=== PATIENT | female | born 1980 | race Caucasian/White ===

== ENCOUNTER → 2017-08-25 | Outpatient (CLI) | payer BC ==
[~2017-08-25] MED LIST: EPP3/2 IM; FURO-85 PO; LEVAAER2; LEVO1TAB PO; LISI-788 PO; METF750T PO; METO50TA7 PO; MOME220A INH
--- NOTE | 2017-08-25 10:14 | DIAGNOSTIC IMAGING REPORT ---
CT OF THE ABDOMEN AND PELVIS WITHOUT CONTRAST CLINICAL HISTORY: Bilateral flank pain. Nephrolithiasis. COMPARISON STUDY: CT of the abdomen and pelvis October 10, 2014 and KUB performed earlier today. TECHNIQUE: Axial images of the abdomen and pelvis were obtained without IV contrast. Images were reviewed in the axial, sagittal, and coronal planes. A dose lowering technique was utilized adhering to the principles of ALARA. FINDINGS: No ureteral or bladder calculi are present. Note is made of a punctate left lower pole renal calculus. This measures 2 mm. The possible right renal calculus shown on prior KUB was artifactual. Pelvic calcifications reflect phleboliths. There are is no hydronephrosis or hydroureter. Evaluation of the remainder of the abdomen and pelvis is suboptimal on this unenhanced exam. Fatty infiltration of the liver is noted. Unenhanced images of the spleen, adrenal glands and pancreas are normal. There is no evidence for a bowel obstruction. The appendix is normal. There is no ascites or lymphadenopathy. Ovaries are not enlarged. Postoperative findings within the spine are noted. IMPRESSION: 1. Punctate 2 mm left renal calculus. No ureteral calculi or hydronephrosis. The possible right renal calculus shown on prior KUB was artifactual. 2. Fatty liver. 3. Normal appendix. No bowel obstruction. Electronically signed by: Farzad Hooks M.D. 08/25/2017 10:12 AM Dictated Date/Time: 08/25/2017 10:07 AM
== END | disposition home or self-care (01) ==
LOC: C.CTS 09:53
PROVIDERS: ATTEND Nurse Practitioner Family
DX: N20.0 Calculus of kidney (principal); K76.0 Fatty (change of) liver, not elsewhere classified

== ENCOUNTER → 2017-08-25 | Outpatient (CLI) | payer BC ==
--- NOTE | 2017-08-25 08:31 | DIAGNOSTIC IMAGING REPORT ---
KUB CLINICAL HISTORY: Nephrolithiasis. COMPARISON STUDY: KUB February 11, 2016. FINDINGS: Postoperative findings within the spine are incidentally noted. The bowel gas pattern is normal. There is a possible 7 mm right renal calculus. No ureteral calculi are identified. Pelvic calcifications likely reflect phleboliths. IMPRESSION: 1. Possible 7 mm right renal calculus. 2. Pelvic calcifications which likely reflect phleboliths. Electronically signed by: Farzad Hooks M.D. 08/25/2017 8:29 AM Dictated Date/Time: 08/25/2017 8:26 AM
== END | disposition home or self-care (01) ==
LOC: C.RAD 08:03
PROVIDERS: ATTEND Nurse Practitioner Family
DX: N20.0 Calculus of kidney (principal); R93.5 Abnormal findings on diagnostic imaging of other abdominal regions, including retroperitoneum

== ENCOUNTER → 2017-10-19 | Outpatient (CLI) | payer BC ==
[~2017-10-19] MED LIST changes: +LEVA1.255 INH; +LEVA45AE INH; +LEVO75TA5 PO; +METO50TA16 PO; +MULT-506 PO
--- NOTE | 2017-10-19 08:55 | DIAGNOSTIC IMAGING REPORT ---
THYROID ULTRASOUND CLINICAL HISTORY: NECK PAIN COMPARISON STUDY: No previous studies for comparison. FINDINGS: The right lobe of thyroid measures 4.2 x 1.7 x 1.5 cm. Left lobe of thyroid measures 4.3 x 1.6 x 1.7 cm. No thyroid masses are visualized. Incidentally noted is a 13 x 10 x 7 mm left submandibular lymph node. IMPRESSION: 1. No pathologic thyroid masses identified 2. Incidentally noted 13 x 10 x 7 mm left submandibular lymph node Electronically signed by: Garret Travis M.D. 10/19/2017 8:54 AM Dictated Date/Time: 10/19/2017 8:52 AM
== END | disposition home or self-care (01) ==
LOC: C.ULTR 08:13
PROVIDERS: ATTEND Family Medicine
DX: M54.2 Cervicalgia (principal)

== ENCOUNTER → 2017-11-06 | Day surgery (SDC) | payer BC ==
[2017-10-22 10:30] VITALS: BMI 44.0
[~2017-11-06] VITALS: Ht 167.6 cm; Wt 127.3 kg
[~2017-11-06] MED LIST changes: +ACET1TAB84 PO; +ALUM-30 PO; +CHECK SCOPOLAMINE PATCH PLACEMENT SCH; +FLVHFA110 INH; -FURO-85 PO; -LEVAAER2; -LEVO1TAB PO; +LIDOCAINE HCL 2% 2 ML VIAL (20MG/ML) ONE; -METF750T PO; -METO50TA7 PO; -MOME220A INH; +NORE0.3527 PO; +OMEP40CA41 PO; +ONDANSETRON INJ 2 MG/ML 2 ML VIAL ONE; +PROPOFOL IV EMULSION 10 MG/ML 20 ML VIAL IV ONE; +SCOPOLAMINE 1.5 MG TDSY TD ONE; +SCOPOLAMINE 1.5 MG TDSY TD SCH; +SODIUM CHLORIDE 0.9% 500ML 500 ML IV ONE
[2017-11-06 12:09] VITALS: Ht 167.6 cm; Wt 127.3 kg
--- NOTE | 2017-11-06 12:44 | Endo History and Physical ---
History & Physical Date of Service: Nov 06, 2017. Chief Complaint: REFLUX FEELS LIKE FOOD STICKS Referring Physician: DR KEARNEY History of Present Illness dysphagia Past Medical History Arthritis, Fractures, Asthma, Gastrointestinal Disorder, Reflux, Blood Dyscrasias, Gynecological Problems, Seizure Disorder, High Cholesterol, Syncopal Episodes, Hypertension, Thyroid Disease, Chronic Steroid Use, Kidney Disease, Liver Disease Past Surgical History Hx Cardiac Surgery: Yes (LOOP RECORDER IMPLANTED) Hx Internal Defibrillator: No Hx Pacemaker: No Hx Abdominal Surgery: No Hx of Implantable Prosthesis: No Hx Post-Op Nausea and Vomiting: Yes (REQUEST MEDS TO PREVENT) Hx Cancer Surgery: No Hx Thoracic Surgery: No Hx Orthopedic: Yes (RT/LEFT CTR, LEFT SHOULDER SX X2, LUMBAR FUSION) Hx Urinary Tract Surgery: No Family History Polyp Social History Smoking Status: Never Smoker Hx Substance Use: No Hx Alcohol Use: No Allergies Coded Allergies: NO KNOWN DRUG ALLERGIES (Unverified Allergy, Mild, none, 10/22/17) Adhesives (Verified Allergy, Unknown, REDNESS, 10/22/17) Chocolate (Verified Allergy, Unknown, WARM LIPS, 10/22/17) Garlic (Verified Allergy, Unknown, LIPS SWELL, 10/22/17) Milk (Verified Allergy, Unknown, LIPS SWELL, 10/22/17) Milk Protein Extract (Verified Allergy, Unknown, MILK = LIPS SWELL, ) Pineapple (Verified Allergy, Unknown, LIPS SWELL, 10/22/17) Pork (Verified Allergy, Unknown, LIPS SWELL, 10/22/17) Pork-derived Products (Verified Allergy, Unknown, PORK = LIPS SWELL, 10/22) Shellfish (Verified Allergy, Unknown, sometimes lip swells, fine with iodinated contrast, 10/22/17) Shellfish Allergy (Verified Allergy, Unknown, SHELLFISH-sometimes lip swells, fine with iodinated contrast, 10/22/17) Tomato (Verified Allergy, Unknown, LIPS SWELL, 10/22/17) Uncoded Allergies: ENVIRONMENTAL ALLERGIES (Allergy, Unknown, POLLEN AND DUST, MOLD, TOBACCO, 10/22/17) Current Medications Reported Home Medications Medications Dose Route/Sig Max Daily Dose Days Date Category Levalbuterol Tartrate Hfa (Levalbuterol Tartrate) 45 Mcg/Act Aer 1 Puff INH DIRECTED PRN 12/14/17 Reported Levalbuterol (Levalbuterol Hcl) 1.25 Mg/0.5 Ml Neb 1 Dose INH DIRECTED PRN 10/22/17 Reported Multivitamin (Multivitamins) Tab 1 Tab PO QAM 10/22/17 Reported Levothyroxine Sodium 75 Mcg Tab 1 Tab PO QAM 10/22/17 Reported Lopressor (Metoprolol Tartrate) 50 Mg Tab 1.5 Tab PO BID 10/22/17 Reported Zestoretic 20MG/25MG (HCTZ/Lisinopril) Tab 1 Tab PO QAM 08/09/15 Reported Epipen (Epinephrine) 0.3 Mg/0.3 Ml Inj 0.3 Mg IM UD 06/22/13 Reported Vital Signs Weight (Kilograms): 127.27 Height (Feet): 5 Height (Inches): 6 Date Time Temp Pulse Resp B/P (MAP) Pulse Ox O2 Delivery O2 Flow Rate FiO2 11/06/17 12:15 37 100 24 154/79 (104) 95 Room Air Physical Exam General Appearance: WD/WN, no apparent distress Respiratory/Chest: Auscultation: breath sounds normal Cardiovascular: Heart Auscultation: RRR Abdomen: Bowel Sounds: normal Inspection & Palpation: soft, non-distended, no tenderness, guarding & rebound Assessment and Plan EGD/dilation/bx if needed
--- NOTE | 2017-11-06 13:07 | Discharge Instructions ---
Endoscopy Patient Instructions Date / Procedure(s) Performed Nov 06, 2017. EGD Allergy Information Coded Allergies: NO KNOWN DRUG ALLERGIES (Unverified Allergy, Mild, none, 10/22/17) Adhesives (Verified Allergy, Unknown, REDNESS, 10/22/17) Chocolate (Verified Allergy, Unknown, WARM LIPS, 10/22/17) Garlic (Verified Allergy, Unknown, LIPS SWELL, 10/22/17) Milk (Verified Allergy, Unknown, LIPS SWELL, 10/22/17) Milk Protein Extract (Verified Allergy, Unknown, MILK = LIPS SWELL, ) Pineapple (Verified Allergy, Unknown, LIPS SWELL, 10/22/17) Pork (Verified Allergy, Unknown, LIPS SWELL, 10/22/17) Pork-derived Products (Verified Allergy, Unknown, PORK = LIPS SWELL, 10/22) Shellfish (Verified Allergy, Unknown, sometimes lip swells, fine with iodinated contrast, 10/22/17) Shellfish Allergy (Verified Allergy, Unknown, SHELLFISH-sometimes lip swells, fine with iodinated contrast, 10/22/17) Tomato (Verified Allergy, Unknown, LIPS SWELL, 10/22/17) Uncoded Allergies: ENVIRONMENTAL ALLERGIES (Allergy, Unknown, POLLEN AND DUST, MOLD, TOBACCO, 10/22/17) Discharge Date / Findings Nov 06, 2017. HH esophagitis Medication Instructions Restart Stopped Medication(s): Reported Home Medications Medications Dose Route/Sig Max Daily Dose Days Date Category Levalbuterol Tartrate Hfa (Levalbuterol Tartrate) 45 Mcg/Act Aer 1 Puff INH DIRECTED PRN 10/22/17 Reported Levalbuterol (Levalbuterol Hcl) 1.25 Mg/0.5 Ml Neb 1 Dose INH DIRECTED PRN 10/22/17 Reported Multivitamin (Multivitamins) Tab 1 Tab PO QAM 10/22/17 Reported Levothyroxine Sodium 75 Mcg Tab 1 Tab PO QAM 10/22/17 Reported Lopressor (Metoprolol Tartrate) 50 Mg Tab 1.5 Tab PO BID 10/22/17 Reported Zestoretic 20MG/25MG (HCTZ/Lisinopril) Tab 1 Tab PO QAM 08/09/15 Reported Epipen (Epinephrine) 0.3 Mg/0.3 Ml Inj 0.3 Mg IM UD 06/22/13 Reported Begin Prilosec 40mg daily 1/2 hr AC Reported Home Medications Medications Dose Route/Sig Max Daily Dose Days Date Category Levalbuterol Tartrate Hfa (Levalbuterol Tartrate) 45 Mcg/Act Aer 1 Puff INH DIRECTED PRN 10/22/17 Reported Levalbuterol (Levalbuterol Hcl) 1.25 Mg/0.5 Ml Neb 1 Dose INH DIRECTED PRN 10/22/17 Reported Multivitamin (Multivitamins) Tab 1 Tab PO QAM 10/22/17 Reported Levothyroxine Sodium 75 Mcg Tab 1 Tab PO QAM 10/22/17 Reported Lopressor (Metoprolol Tartrate) 50 Mg Tab 1.5 Tab PO BID 10/22/17 Reported Zestoretic 20MG/25MG (HCTZ/Lisinopril) Tab 1 Tab PO QAM 08/09/15 Reported Epipen (Epinephrine) 0.3 Mg/0.3 Ml Inj 0.3 Mg IM UD 06/22/13 Reported Begin Prilosec 40mg daily 1/2 hr AC Provider Instructions Activity Restrictions - No exercising or heavy lifting for 24 hours. - Do not drink alcohol the day of the procedure. - Do not drive a car or operate machinery until the day after the procedure. - Do not make any important decisions or sign important papers in 24 hours after the procedure. Following Day: - Return to full activity which may include returning to work/school. Diet Start your diet with liquids and light foods (jello, soup, juice, toast). Then eat your usual diet if not nauseated. Treatment For Common After Affects For mild abdominal pain, bloating, or excessive gas: - Rest - Eat lightly - Lie on right side Follow-Up Information Follow-up with DR KEARNEY as scheduled Anesthesia Information What You Should Know You have had a procedure that required some medicine to reduce anxiety and discomfort. This treatment is called moderate sedation. After receiving the treatment, you may be sleepy, but you will be able to breathe on your own. The effects of the treatment may last for several hours. Follow these instructions along with Activity/Diet recommendations noted above: * Do NOT do anything where dizziness or clumsiness would be dangerous. * Rest quietly at home today, then you can be up and about tomorrow. * Have a responsible person stay with you the rest of today. * You may have had an I.V. today. If so, you may take the dressing off later today. Recommendations Call your doctor if: * Trouble breathing * Continuous vomiting for more than 24 hours * Temperature above 101 degrees * Severe abdominal pain or bloating * Pain not relieved by pain medicine ordered * There is increased drainage or redness from any incision * A large amount of rectal bleeding greater than 2-3 tablespoons. (If you had a polyp/s removed or have hemorrhoids, a small amount of blood - from the rectum is to be expected.) * You have any unanswered questions or concerns. IN THE EVENT OF A SERIOUS EMERGENCY, GO TO THE NEAREST EMERGENCY ROOM Your discharge instructions were prepared by provider Jesse Sylvester. Patient Instructions Signature Page Vanessa Tsai Patient (or Guardian) Signature/Date: I have read and understand the instructions given to me by my caregivers. Caregiver/RN/Doctor Signature/Date: The above-named patient and/or guardian has received patient instructions on this date. + Original Patient Signature Page (only) stays with chart. Please make copy for patient.
--- NOTE | 2017-11-06 13:20 | GI REPORT ---
Procedure Date: 11/06/2017 12:35 PM Procedure: Upper GI endoscopy Indications: Oropharyngeal phase dysphagia, Esophageal dysphagia Medicines: Propofol per Anesthesia Complications: No immediate complications. Estimated blood loss: None. Estimated Blood Loss: Estimated blood loss: none. Procedure: Pre-Anesthesia Assessment: - Prior to the procedure, a History and Physical was performed, and patient medications and allergies were reviewed. The patient's tolerance of previous anesthesia was also reviewed. The risks and benefits of the procedure and the sedation options and risks were discussed with the patient. All questions were answered, and informed consent was obtained. Prior Anticoagulants: The patient has taken no previous anticoagulant or antiplatelet agents. ASA Grade Assessment: III - A patient with severe systemic disease. After reviewing the risks and benefits, the patient was deemed in satisfactory condition to undergo the procedure. After obtaining informed consent, the endoscope was passed under direct vision. Throughout the procedure, the patient's blood pressure, pulse, and oxygen saturations were monitored continuously. The scope was introduced through the mouth, and advanced to the second part of duodenum. The upper GI endoscopy was accomplished without difficulty. The patient tolerated the procedure well. Findings: The upper third of the esophagus and middle third of the esophagus were normal. LA Grade C (one or more mucosal breaks continuous between tops of 2 or more mucosal folds, less than 75% circumference) esophagitis with no bleeding was found 35 to 38 cm from the incisors. A small hiatal hernia was found. The proximal extent of the gastric folds (end of tubular esophagus) was 38 cm from the incisors. The hiatal narrowing was 40 cm from the incisors. The Z-line was 38 cm from the incisors. Probable mild portal hypertensive gastropathy was found in the entire examined stomach. Esophageal or gastric varices not identified. The exam of the stomach was otherwise normal. Retained gastric contents are not identified on this exam. The examined duodenum was normal. The cardia and gastric fundus were normal on retroflexion. Impression: - Normal upper third of esophagus and middle third of esophagus. - LA Grade C reflux esophagitis. - Small hiatal hernia. - Portal hypertensive gastropathy. - Normal examined duodenum. - No specimens collected. Recommendation: - Discharge patient to home (ambulatory). - Resume regular diet. - Continue present medications. - Use Prilosec (omeprazole) 40 mg PO daily. - Return to referring physician as previously scheduled. - Return to GI clinic as previously scheduled. Jesse Inverso, MD Jesse Inverso, MD 11/06/2017 1:20:27 PM This report has been signed electronically. Note Initiated On: 11/06/2017 12:35 PM I attest to the content of the Intraoperative Record and orders documented therein, exceptions below
--- NOTE | 2017-11-06 13:23 | Anesthesiology Progress Note ---
Anesthesia Post Op Note Date & Time Nov 06, 2017 at 13:22 Vital Signs Pain Intensity: 0 Vital Signs Past 12 Hours Date Time Temp Pulse Resp B/P (MAP) Pulse Ox O2 Delivery O2 Flow Rate FiO2 11/06/17 13:11 37 98 20 119/77 (91) 94 Room Air 11/06/17 12:15 37 100 24 154/79 (104) 95 Room Air Notes Mental Status: alert / awake / arousable, participated in evaluation Pt Amnestic to Procedure: Yes Nausea / Vomiting: adequately controlled Pain: adequately controlled Airway Patency, RR, SpO2: stable & adequate BP & HR: stable & adequate Hydration State: stable & adequate Anesthetic Complications: no major complications apparent
[2017-11-06 13:40] VITALS: BP 155/88; PULSE 96; O2SAT 95
== END | disposition home or self-care (01) ==
LOC: C.GI 11:56
PROVIDERS: ATTEND Internal Medicine Gastroenterology
DX: R13.12 Dysphagia, oropharyngeal phase (principal); K44.9 Diaphragmatic hernia without obstruction or gangrene; J45.909 Unspecified asthma, uncomplicated; G47.33 Obstructive sleep apnea (adult) (pediatric); K21.9 Gastro-esophageal reflux disease without esophagitis; E66.9 Obesity, unspecified; M45.9 Ankylosing spondylitis of unspecified sites in spine; Z98.1 Arthrodesis status

== ENCOUNTER → 2018-02-08 | Day surgery (SDC) | payer BC ==
[2018-02-01 13:36] VITALS: Ht 168.9 cm; Wt 125.0 kg
[~2018-02-08] VITALS: Ht 168.9 cm; Wt 125.0 kg
[~2018-02-08] MED LIST changes: -ACET1TAB84 PO; +ATROPINE SULFATE 0.1 MG/ML 5ML SYR IV PRN; -CHECK SCOPOLAMINE PATCH PLACEMENT SCH; +EpHEDrine SULFATE INJ 50 MG/ML AMP IV PRN; +MIDAZOLAM HCL 1 MG/ML 2ML VIAL ONE; -NORE0.3527 PO; -SCOPOLAMINE 1.5 MG TDSY TD ONE; -SCOPOLAMINE 1.5 MG TDSY TD SCH
--- NOTE | 2018-02-08 14:41 | Endo History and Physical ---
History & Physical Date of Service: Feb 08, 2018. Chief Complaint: Dysphagia Referring Physician: Dr. Bertha Pavon History of Present Illness esophagitis.portal HTN/dysphagia Past Medical History Arthritis, Fractures, Asthma, Gastrointestinal Disorder, Reflux, Blood Dyscrasias, Gynecological Problems, Seizure Disorder, High Cholesterol, Syncopal Episodes, Hypertension, Thyroid Disease, Chronic Steroid Use, Kidney Disease, Liver Disease Past Surgical History Hx Cardiac Surgery: Yes (LOOP RECORDER IMPLANTED) Hx Internal Defibrillator: No Hx Pacemaker: No Hx Abdominal Surgery: No Hx Post-Op Nausea and Vomiting: Yes (REQUEST MEDS TO PREVENT) Hx Cancer Surgery: No Hx Thoracic Surgery: No Hx Orthopedic: Yes (RT/LEFT CTR, LEFT SHOULDER SX X2, LUMBAR FUSION) Hx Urinary Tract Surgery: No Family History Polyp Social History Smoking Status: Never Smoker Hx Substance Use: No Hx Alcohol Use: No Allergies Coded Allergies: NO KNOWN DRUG ALLERGIES (Verified Allergy, Mild, none, 02/08/18) Adhesives (Verified Allergy, Unknown, REDNESS, 10/22/17) Chocolate (Verified Allergy, Unknown, WARM LIPS, 10/22/17) Garlic (Verified Allergy, Unknown, LIPS SWELL, 10/22/17) Milk (Verified Allergy, Unknown, LIPS SWELL, 10/22/17) Milk Protein Extract (Verified Allergy, Unknown, MILK = LIPS SWELL, ) Pineapple (Verified Allergy, Unknown, LIPS SWELL, 10/22/17) Pork (Verified Allergy, Unknown, LIPS SWELL, 10/22/17) Pork-derived Products (Verified Allergy, Unknown, PORK = LIPS SWELL, 10/22) Shellfish (Verified Allergy, Unknown, sometimes lip swells, fine with iodinated contrast, 10/22/17) Shellfish Allergy (Verified Allergy, Unknown, SHELLFISH-sometimes lip swells, fine with iodinated contrast, 10/22/17) Tomato (Verified Allergy, Unknown, LIPS SWELL, 10/22/17) Uncoded Allergies: ENVIRONMENTAL ALLERGIES (Allergy, Unknown, POLLEN AND DUST, MOLD, TOBACCO, 10/22/17) Current Medications Reported Home Medications Medications Dose Route/Sig Max Daily Dose Days Date Category Mylanta (Alum & Mag Hydrox-Simethicone) 1 Rosario Rosario 1 Dose PO HS PRN 3/26/18 Reported Flovent Hfa (Fluticasone Propionate) 120 Puffs/02392 Mcg Aero 2 Puffs INH HS 02/01/18 Reported Prilosec (Omeprazole) 40 Mg Cap 40 Mg PO BID 02/01/18 Reported Levalbuterol Tartrate Hfa (Levalbuterol Tartrate) 45 Mcg/Act Aer 1 Puff INH DIRECTED PRN 10/22/17 Reported Levalbuterol (Levalbuterol Hcl) 1.25 Mg/0.5 Ml Neb 1 Dose INH DIRECTED PRN 10/22/17 Reported Multivitamin (Multivitamins) Tab 1 Tab PO QAM 10/22/17 Reported Levothyroxine Sodium 75 Mcg Tab 1 Tab PO QAM 10/22/17 Reported Lopressor (Metoprolol Tartrate) 50 Mg Tab 1.5 Tab PO BID 10/22/17 Reported Zestoretic 20MG/25MG (HCTZ/Lisinopril) Tab 1 Tab PO QAM 08/09/15 Reported Epipen (Epinephrine) 0.3 Mg/0.3 Ml Inj 0.3 Mg IM UD 06/22/13 Reported Vital Signs Weight (Kilograms): 125 Height (Feet): 5 Height (Inches): 6.5 Date Time Temp Pulse Resp B/P (MAP) Pulse Ox O2 Delivery O2 Flow Rate FiO2 02/08/18 13:48 36.9 84 16 148/86 (106) 96 Room Air Physical Exam General Appearance: WD/WN, no apparent distress Respiratory/Chest: Auscultation: breath sounds normal Cardiovascular: Heart Auscultation: RRR Abdomen: Bowel Sounds: normal Inspection & Palpation: soft, non-distended, no tenderness, guarding & rebound Assessment and Plan EGD , possible biopsy, possible banding
--- NOTE | 2018-02-08 15:23 | GI REPORT ---
Procedure Date: 02/08/2018 2:47 PM Procedure: Upper GI endoscopy Indications: Dysphagia, Esophageal reflux Medicines: Propofol per Anesthesia Complications: No immediate complications. Estimated blood loss: None. Estimated Blood Loss: Estimated blood loss: none. Procedure: Pre-Anesthesia Assessment: - Prior to the procedure, a History and Physical was performed, and patient medications and allergies were reviewed. The patient's tolerance of previous anesthesia was also reviewed. The risks and benefits of the procedure and the sedation options and risks were discussed with the patient. All questions were answered, and informed consent was obtained. Prior Anticoagulants: The patient has taken no previous anticoagulant or antiplatelet agents. ASA Grade Assessment: III - A patient with severe systemic disease. After reviewing the risks and benefits, the patient was deemed in satisfactory condition to undergo the procedure. After obtaining informed consent, the endoscope was passed under direct vision. Throughout the procedure, the patient's blood pressure, pulse, and oxygen saturations were monitored continuously. The scope was introduced through the mouth, and advanced to the second part of duodenum. The upper GI endoscopy was accomplished without difficulty. The patient tolerated the procedure well. Findings: LA Grade A (one or more mucosal breaks less than 5 mm, not extending between tops of 2 mucosal folds) esophagitis with no bleeding was found 37 to 39 cm from the incisors. A small hiatal hernia was found. The proximal extent of the gastric folds (end of tubular esophagus) was 39 cm from the incisors. The hiatal narrowing was 42 cm from the incisors. The Z-line was 39 cm from the incisors. Mild portal hypertensive gastropathy was found in the gastric fundus and in the gastric body. The exam of the stomach was otherwise normal. The examined duodenum was normal. Retained gastric contents are not identified on this exam. The cardia and gastric fundus were normal on retroflexion. A low-grade of narrowing, non-obstructing and mild Schatzki ring (acquired) was found at the gastroesophageal junction. A guidewire was placed and the scope was withdrawn. Dilation was performed with a Savary dilator with no resistance at 54 Fr. Impression: - LA Grade A reflux esophagitis. - Small hiatal hernia. - Portal hypertensive gastropathy. - Normal examined duodenum. - Low-grade of narrowing, non-obstructing and mild Schatzki ring. Dilated. - No specimens collected. Recommendation: - Discharge patient to home (ambulatory). - Resume regular diet. - Continue present medications. - Return to GI clinic as previously scheduled. MD Jesse Stafford MD 02/08/2018 3:22:45 PM This report has been signed electronically. Note Initiated On: 02/08/2018 2:47 PM I attest to the content of the Intraoperative Record and orders documented therein, exceptions below
--- NOTE | 2018-02-08 15:24 | Anesthesiology Progress Note ---
Anesthesia Post Op Note Date & Time Feb 08, 2018 at 15:24 Vital Signs Pain Intensity: 0 Vital Signs Past 12 Hours Date Time Temp Pulse Resp B/P (MAP) Pulse Ox O2 Delivery O2 Flow Rate FiO2 02/08/18 15:12 36.9 91 18 131/65 (87) 95 Room Air 02/08/18 13:48 36.9 84 16 148/86 (106) 96 Room Air Notes Mental Status: alert / awake / arousable, participated in evaluation Pt Amnestic to Procedure: Yes Nausea / Vomiting: adequately controlled Pain: adequately controlled Airway Patency, RR, SpO2: stable & adequate BP & HR: stable & adequate Hydration State: stable & adequate Anesthetic Complications: no major complications apparent
--- NOTE | 2018-02-08 15:25 | Discharge Instructions ---
Endoscopy Patient Instructions Date / Procedure(s) Performed Feb 08, 2018. EGD Allergy Information Coded Allergies: NO KNOWN DRUG ALLERGIES (Verified Allergy, Mild, none, 02/08/18) Adhesives (Verified Allergy, Unknown, REDNESS, 10/22/17) Chocolate (Verified Allergy, Unknown, WARM LIPS, 10/22/17) Garlic (Verified Allergy, Unknown, LIPS SWELL, 10/22/17) Milk (Verified Allergy, Unknown, LIPS SWELL, 10/22/17) Milk Protein Extract (Verified Allergy, Unknown, MILK = LIPS SWELL, ) Pineapple (Verified Allergy, Unknown, LIPS SWELL, 10/22/17) Pork (Verified Allergy, Unknown, LIPS SWELL, 10/22/17) Pork-derived Products (Verified Allergy, Unknown, PORK = LIPS SWELL, 10/22) Shellfish (Verified Allergy, Unknown, sometimes lip swells, fine with iodinated contrast, 10/22/17) Shellfish Allergy (Verified Allergy, Unknown, SHELLFISH-sometimes lip swells, fine with iodinated contrast, 10/22/17) Tomato (Verified Allergy, Unknown, LIPS SWELL, 10/22/17) Uncoded Allergies: ENVIRONMENTAL ALLERGIES (Allergy, Unknown, POLLEN AND DUST, MOLD, TOBACCO, 10/22/17) Discharge Date / Findings Feb 08, 2018. HH; mild esophagitis; mild Schatzki ring; mild portal gastropathy dilated to 54 Fr Savary Medication Instructions Stopped Medication(s): see med rec Restart Stopped Medication(s): Reported Home Medications Medications Dose Route/Sig Max Daily Dose Days Date Category Mylanta (Alum & Mag Hydrox-Simethicone) 1 Rosario Rosario 1 Dose PO HS PRN 02/01/18 Reported Flovent Hfa (Fluticasone Propionate) 120 Puffs/62023 Mcg Aero 2 Puffs INH HS 02/01/18 Reported Prilosec (Omeprazole) 40 Mg Cap 40 Mg PO BID 02/01/18 Reported Levalbuterol Tartrate Hfa (Levalbuterol Tartrate) 45 Mcg/Act Aer 1 Puff INH DIRECTED PRN 10/22/17 Reported Levalbuterol (Levalbuterol Hcl) 1.25 Mg/0.5 Ml Neb 1 Dose INH DIRECTED PRN 10/22/17 Reported Multivitamin (Multivitamins) Tab 1 Tab PO QAM 10/22/17 Reported Levothyroxine Sodium 75 Mcg Tab 1 Tab PO QAM 10/22/17 Reported Lopressor (Metoprolol Tartrate) 50 Mg Tab 1.5 Tab PO BID 10/22/17 Reported Zestoretic 20MG/25MG (HCTZ/Lisinopril) Tab 1 Tab PO QAM 08/09/15 Reported Epipen (Epinephrine) 0.3 Mg/0.3 Ml Inj 0.3 Mg IM UD 06/22/13 Reported Reported Home Medications Medications Dose Route/Sig Max Daily Dose Days Date Category Mylanta (Alum & Mag Hydrox-Simethicone) 1 Rosario Rosario 1 Dose PO HS PRN 02/01/18 Reported Flovent Hfa (Fluticasone Propionate) 120 Puffs/84096 Mcg Aero 2 Puffs INH HS 02/01/18 Reported Prilosec (Omeprazole) 40 Mg Cap 40 Mg PO BID 02/01/18 Reported Levalbuterol Tartrate Hfa (Levalbuterol Tartrate) 45 Mcg/Act Aer 1 Puff INH DIRECTED PRN 10/22/17 Reported Levalbuterol (Levalbuterol Hcl) 1.25 Mg/0.5 Ml Neb 1 Dose INH DIRECTED PRN 10/22/17 Reported Multivitamin (Multivitamins) Tab 1 Tab PO QAM 10/22/17 Reported Levothyroxine Sodium 75 Mcg Tab 1 Tab PO QAM 10/22/17 Reported Lopressor (Metoprolol Tartrate) 50 Mg Tab 1.5 Tab PO BID 10/22/17 Reported Zestoretic 20MG/25MG (HCTZ/Lisinopril) Tab 1 Tab PO QAM 08/09/15 Reported Epipen (Epinephrine) 0.3 Mg/0.3 Ml Inj 0.3 Mg IM UD 06/22/13 Reported Provider Instructions Activity Restrictions - No exercising or heavy lifting for 24 hours. - Do not drink alcohol the day of the procedure. - Do not drive a car or operate machinery until the day after the procedure. - Do not make any important decisions or sign important papers in 24 hours after the procedure. Following Day: - Return to full activity which may include returning to work/school. Diet Start your diet with liquids and light foods (jello, soup, juice, toast). Then eat your usual diet if not nauseated. Treatment For Common After Affects For mild abdominal pain, bloating, or excessive gas: - Rest - Eat lightly - Lie on right side Follow-Up Information Follow-up with Dr. Bertha Pavon as scheduled Anesthesia Information What You Should Know You have had a procedure that required some medicine to reduce anxiety and discomfort. This treatment is called moderate sedation. After receiving the treatment, you may be sleepy, but you will be able to breathe on your own. The effects of the treatment may last for several hours. Follow these instructions along with Activity/Diet recommendations noted above: * Do NOT do anything where dizziness or clumsiness would be dangerous. * Rest quietly at home today, then you can be up and about tomorrow. * Have a responsible person stay with you the rest of today. * You may have had an I.V. today. If so, you may take the dressing off later today. Recommendations Call your doctor if: * Trouble breathing * Continuous vomiting for more than 24 hours * Temperature above 101 degrees * Severe abdominal pain or bloating * Pain not relieved by pain medicine ordered * There is increased drainage or redness from any incision * A large amount of rectal bleeding greater than 2-3 tablespoons. (If you had a polyp/s removed or have hemorrhoids, a small amount of blood - from the rectum is to be expected.) * You have any unanswered questions or concerns. IN THE EVENT OF A SERIOUS EMERGENCY, GO TO THE NEAREST EMERGENCY ROOM Your discharge instructions were prepared by provider Jesse Sylvester. Patient Instructions Signature Page Vanessa Tsai Patient (or Guardian) Signature/Date: I have read and understand the instructions given to me by my caregivers. Caregiver/RN/Doctor Signature/Date: The above-named patient and/or guardian has received patient instructions on this date. + Original Patient Signature Page (only) stays with chart. Please make copy for patient.
[2018-02-08 15:42] VITALS: BP 151/99; PULSE 86; O2SAT 96
== END | disposition home or self-care (01) ==
LOC: C.GI 13:18
PROVIDERS: ATTEND Internal Medicine Gastroenterology
DX: R13.10 Dysphagia, unspecified (principal); K21.0 Gastro-esophageal reflux disease with esophagitis; K44.9 Diaphragmatic hernia without obstruction or gangrene; K31.89 Other diseases of stomach and duodenum; E66.9 Obesity, unspecified; G47.33 Obstructive sleep apnea (adult) (pediatric); J45.909 Unspecified asthma, uncomplicated; K22.2 Esophageal obstruction; M19.90 Unspecified osteoarthritis, unspecified site; Z91.011 Allergy to milk products; Z91.013 Allergy to seafood; Z91.018 Allergy to other foods; Z98.1 Arthrodesis status

== ENCOUNTER → 2018-02-23 | Outpatient (CLI) | payer BC ==
[~2018-02-23] MED LIST changes: -ATROPINE SULFATE 0.1 MG/ML 5ML SYR IV PRN; -EpHEDrine SULFATE INJ 50 MG/ML AMP IV PRN; -LIDOCAINE HCL 2% 2 ML VIAL (20MG/ML) ONE; -MIDAZOLAM HCL 1 MG/ML 2ML VIAL ONE; -ONDANSETRON INJ 2 MG/ML 2 ML VIAL ONE; -PROPOFOL IV EMULSION 10 MG/ML 20 ML VIAL IV ONE; -SODIUM CHLORIDE 0.9% 500ML 500 ML IV ONE
--- NOTE | 2018-02-23 09:43 | DIAGNOSTIC IMAGING REPORT ---
SOFT TISS HEAD/NECK-THYROID HISTORY: Cervical adenopathy CERVICAL LYMPHADENOPATHY COMPARISON: 10/19/2017 FINDINGS: Several left submandibular and cervical nodes measuring up to 1.2 cm in maximum linear dimension. Orthogonal dimension does not exceed 7 mm. Nodes have generally benign morphology with fatty nohemi regions throughout. These nodes are generally similar compared to the prior study. IMPRESSION: Left submandibular and cervical adenopathy considered unchanged from the prior study. Nodes continue to be slightly prominent but continue to have benign morphology. Follow-up ultrasound at 6 months or as clinically deemed appropriate is suggested. The above report was generated using voice recognition software. It may contain grammatical, syntax or spelling errors. Electronically signed by: James Ferguson M.D. 02/23/2018 9:42 AM Dictated Date/Time: 02/23/2018 9:39 AM
== END | disposition home or self-care (01) ==
LOC: C.ULTR 09:11
DX: R59.0 Localized enlarged lymph nodes (principal)

== ENCOUNTER → 2018-03-18 | Outpatient (CLI) | payer BC | END | disposition home or self-care (01) | LOC: C.PAPS 11:27 | PROVIDERS: ATTEND Obstetrics & Gynecology | DX: Z01.419 Encounter for gynecological examination (general) (routine) without abnormal findings (principal) ==

== ENCOUNTER → 2018-03-18 | Outpatient (CLI) | payer BC | LOC: C.PATHSPEC 13:09 | PROVIDERS: ATTEND Obstetrics & Gynecology | DX: N91.5 Oligomenorrhea, unspecified (principal) ==